=== PATIENT | female | born 1985 | race Caucasian/White ===

== ENCOUNTER → 2018-02-15 | Outpatient (CLI) | payer OTHER | LOC: COL.RAD 11:13 | DX: N12 Tubulo-interstitial nephritis, not specified as acute or chronic (principal); Z97.5 Presence of (intrauterine) contraceptive device; Z87.441 Personal history of nephrotic syndrome | CPT/HCPCS: Q9967 ==

== ENCOUNTER → 2018-04-19 | Outpatient (CLI) | payer OTHER | LOC: COL.RAD 07:50 | DX: N39.0 Urinary tract infection, site not specified (principal); Z87.441 Personal history of nephrotic syndrome | CPT/HCPCS: Q9967 ==